=== PATIENT | male | born 1985 | race Caucasian/White ===

== ENCOUNTER 2022-01-23 14:45 | Emergency (ER) | payer OTHER ==
[~2022-01-23] VITALS: Ht 188 cm; Wt 71.7 kg
[~2022-01-23 14:45] MED LIST: AUGMENTIN125 MG/5 M PO
[2022-01-23] MEDS ORDERED: ZOFRAN8 MG PO (20:47)
[2022-01-23] MEDS ORDERED: PEPCID AC20 MG PO (20:47)
== END 2022-01-23 21:04 | disposition home or self-care (01) ==
LOC: ER 14:45
DX: K29.70 Gastritis, unspecified, without bleeding (principal)